=== PATIENT | female | born 1995 | race Caucasian/White ===

== ENCOUNTER 2024-09-19 23:14 | Emergency (ER) | payer SELFPAY ==
[~2024-09-19] VITALS: Ht 165.1 cm; Wt 74.0 kg
[2024-09-19 23:21] VITALS: BP 142/95; PULSE 117; RESP 16; TEMP 36.8; O2SAT 99
[2024-09-20] MEDS ORDERED: TETANUS, DIPHTHERIA, PERTUSSIS VAC/PF 0.5ML (>10YR OLD) IM ONE
[2024-09-20] MEDS ORDERED: BACITRACIN ZINC OINT UDPKT TOP ONE
[2024-09-20] MEDS ORDERED: ACETAMINOPHEN 325MG TABLET PO ONE
[2024-09-20] MEDS ORDERED: LIDOCAINE HCL/PF 1% 10 MG/ML 5ML VIAL INFIL ONE
== END 2024-09-20 02:43 | disposition left against medical advice (07) ==
LOC: ER 23:14
DX: R51.9 Headache, unspecified (principal)
CPT/HCPCS: 99283